=== PATIENT | female | born 1990 | race Two or more races ===

== ENCOUNTER 2019-08-08 22:59 | Emergency (ER) | payer OTHER ==
[2019-08-08 23:59] VITALS: BP 129/84; PULSE 88; TEMP 98.3; BMI 31.8
[2019-08-09] MEDS ORDERED: SULFAMETHOXAZOLE/TRIMETHOPRIM 800MG/160MG D.S. TABLET PO ONE (00:56)
--- NOTE | 2019-08-09 01:02 | PDOC ---
Documentation entered by Brady Webb SCRIBE, acting as scribe for Janey Mckeon MD. Janey Mckeon MD: This documentation has been prepared by the Jon singh Xhesika, SCRIBE, under my direction and personally reviewed by me in its entirety. I confirm that the documentation accurately reflects all work, treatment, procedures, and medical decision making performed by me. History of Present Illness - General Chief Complaint: Pain Stated Complaint: PAIN Time Seen by Provider: 08/09/19 00:37 History Source: Patient Exam Limitations: No Limitations - History of Present Illness Initial Comments: 08/09/19 00:45 The patient is a 29 year old female, with no significant PMH of who presents to the emergency department for abscess on epigastric region x1 month. Patient denies taking any abx or chronic medication for her abscess. The patient denies chest pain, shortness of breath, headache and dizziness. Denies fever, chills, cough, nausea, vomiting, diarrhea and constipation. Denies dysuria, frequency, urgency and hematuria. Allergies: NKDA Past History - Past Medical History Allergies/Adverse Reactions: Allergies Allergy/AdvReac Type Severity Reaction Status Date / Time No Known Allergies Allergy Verified 08/08/19 23:46 Home Medications: Ambulatory Orders Sulfamethoxazole/Trimethoprim [Bactrim Ds -] 1 tab PO BID #14 tablet 08/09/19 - Psycho Social/Smoking Cessation Hx Smoking History: Never smoked Hx Alcohol Use: No Drug/Substance Use Hx: No Review of Systems - Review of Systems Able to Perform ROS?: Yes Comments:: 08/09/19 00:45 GENERAL/CONSTITUTIONAL: No fever or chills. No weakness. HEAD, EYES, EARS, NOSE AND THROAT: No change in vision. No ear pain or discharge. No sore throat. CARDIOVASCULAR: No chest pain or shortness of breath. RESPIRATORY: No cough, wheezing, or hemoptysis. GASTROINTESTINAL: No nausea, vomiting, diarrhea or constipation. GENITOURINARY: No dysuria, frequency, or change in urination. MUSCULOSKELETAL: No joint or muscle swelling or pain. No neck or back pain. SKIN: +abscess on epigastric region. NEUROLOGIC: No headache, vertigo, loss of consciousness, or change in strength/ sensation. ENDOCRINE: No increased thirst. No abnormal weight change. HEMATOLOGIC/LYMPHATIC: No anemia, easy bleeding, or history of blood clots. ALLERGIC/IMMUNOLOGIC: No hives or skin allergy. *Physical Exam - Vital Signs Last Vital Signs Temp Pulse Resp BP Pulse Ox 98.3 F 88 19 129/84 98 08/08/19 23:00 08/08/19 23:00 08/08/19 23:00 08/08/19 23:00 08/08/19 23:00 - Physical Exam 08/09/19 00:45 GENERAL: Awake, alert, and fully oriented, in no acute distress LUNGS: Breath sounds equal, clear to auscultation bilaterally. No wheezes, and no crackles HEART: Regular rate and rhythm, normal S1 and S2, no murmurs, rubs or gallops ABDOMEN: +1cm early abscess mildly TTP. +erythema. No flatulence. Soft, normoactive bowel sounds. No guarding, no rebound. No masses EXTREMITIES: Normal range of motion, no edema. No clubbing or cyanosis. No cords, erythema, or tenderness NEUROLOGICAL: Cranial nerves II through XII grossly intact. Normal speech, normal gait SKIN: Warm, Dry, normal turgor. Medical Decision Making - Medical Decision Making 08/09/19 00:57 This 29-year-old female does not actually have epigastric pain as such, but for the last month she has noticed a 1 cm cyst below her xiphoid area that has become tender and erythematous ,There is no evidence of cellulitis -She does not have any fever or chills or nausea or vomiting - her abdominal exam itself is benign in the right lower quadrant and the left lower quadrant There is no significant fluctuance or drainage and therefore incision and drainage at this time would not be helpful We will start on antibiotics Patient told to use warm compresses Patient does states she has a physician in the [place] and she was told to follow- up with them or return here if she had worsening symptoms 08/09/19 00:59 Discharge - Discharge Information Problems reviewed: Yes Clinical Impression/Diagnosis: Infection, skin Condition: Stable Disposition: HOME - Admission No - Additional Discharge Information Prescriptions: Sulfamethoxazole/Trimethoprim [Bactrim Ds -] 1 tab PO BID #14 tablet - Follow up/Referral Referrals: ON STAFF,NOT [Primary Care Provider] - - Patient Discharge Instructions Patient Printed Discharge Instructions: DI for Skin Abscess Additional Instructions: please seed cone picker your antibiotics at the pharmacy and take them as directed use warm compresses to the area follow up with your regular physician Print Language: SAMMARINESE - Post Discharge Activity
[2019-08-09] MEDS ORDERED: SULFAMETHOXAZOLE/TRIMETHOPRIM 800MG/160MG D.S. TABLET ONE (01:05)
[2019-08-09 01:48] LABS: EPI CELLS 7.3 /HPF (0-5/HPF); HYALINE CASTS 2 /lpf (0-8); PH,URINE 5.5 (5.0-8.0); URINE APPEARANCE CLOUDY; URINE BACTERIA 379.1 /hpf (NEGATIVE); URINE BILIRUBIN NEGATIVE (NEGATIVE); URINE COLOR YELLOW; URINE GLUCOSE (UA) NEGATIVE (NEGATIVE); URINE KETONE NEGATIVE (NEGATIVE); URINE LEUK ESTERASE 2+ (NEGATIVE); URINE NITRITE NEGATIVE (NEGATIVE); URINE PROTEIN NEGATIVE (NEGATIVE); URINE RBC 1 /hpf (0-4); URINE UROBILINOGEN 0.2 mg/dL (0.2-1.0); URINE WBC 27 /hpf (0-5)
== END 2019-08-09 01:26 | disposition home or self-care (01) ==
LOC: JER 22:59 → SUPCPDRO 22:59 → JER 08-09 01:26
DX: L08.9 Local infection of the skin and subcutaneous tissue, unspecified (principal)
CPT/HCPCS: 81003; 84703; 99281-25